=== PATIENT | male | born 1945 | race Caucasian/White ===

== ENCOUNTER 2017-07-14 18:10 | Inpatient (IN) | payer OTHER, MEDICAID ==
[~2017-07-14] VITALS: Ht 185.4 cm; Wt 81.6 kg
[2017-07-14 18:10] VITALS: BP_SYST 145
[~2017-07-14 18:10] MED LIST: BETH50TA PO; OMEP20CA10 PO; PRED10TA PO; QUET200T5 PO; VENL75TA4 PO
--- NOTE | 2017-07-14 18:10 | NUR ---
Arrived via BLS ambulance with compliant of N/V/D abd pain. Pt is not forthcoming with information regarding present illness other than to blame it on an ukn medication which was started at the SNF. Patient to ER bed 6 to gown for evaluation. Side rails up. Report given to Shaun JOVEL.
[2017-07-14] MEDS ORDERED: NACL 0.9% 1,000 ML IV ONE (18:17)
--- NOTE | 2017-07-14 18:20 | NUR ---
ER at bedside examining patient.
[2017-07-14] MEDS ORDERED: ONDANSETRON HCL 4 MG/2 ML VIAL IVP ONE (18:30)
[2017-07-14] MEDS ORDERED: MORPHINE 4 MG/ML INJ. SYRINGE IVP ONE (18:30)
[2017-07-14] MEDS ORDERED: KETOROLAC TROMETHAMINE 30 MG VIAL IVP ONE (18:30)
--- NOTE | 2017-07-14 18:30 | NUR ---
ER Dr. Delgadillo at bedside examining patient.
[2017-07-14] MEDS ORDERED: LABE100T PO (18:33)
[2017-07-14] MEDS ORDERED: SUCR1TAB78 PO (18:33)
[2017-07-14] MEDS ORDERED: DONE5TAB3 PO (18:33)
[2017-07-14] MEDS ORDERED: POTA20TA83 PO (18:33)
[2017-07-14] MEDS ORDERED: PRED10TA PO (18:33)
[2017-07-14] MEDS ORDERED: QUET400T PO (18:33)
[2017-07-14] MEDS ORDERED: SILO8CAP PO (18:33)
[2017-07-14] MEDS ORDERED: DEXL60CA3 PO (18:33)
[2017-07-14] MEDS ORDERED: TAMS-11 PO (18:33)
[2017-07-14] MEDS ORDERED: FENT1PAT10 TD (18:33)
[2017-07-14] MEDS ORDERED: FOLI-43 PO (18:33)
[2017-07-14] MEDS ORDERED: ZOLP10TA2 PO (18:33)
[2017-07-14] MEDS ORDERED: METH2.5T PO (18:33)
--- NOTE | 2017-07-14 18:45 | NUR ---
# 16 FR Tolentino catheter with use of sterile technique. Immediate return of 100 cc clear yellow urine noted. Bedside drainage bag placed below level of bladder. Urine sample collected and sent to lab. Pt tolerated procedure well. Patient arrived with tolentino in place, changed due to standard of practice prior to admission. Patient unable to toilet self.
[2017-07-14 19:08] LABS: BASOPHILS % (AUTO) 0.2 % (0.0-2.0); EOSINOPHILS % (AUTO) 0.3 % (0.0-4.0); HEMATOCRIT 38.4 % (36-54); HEMOGLOBIN 12.8 g/dL (14.0-18.0); LYMPHOCYTES # (AUTO) 1.3 K/uL (1.0-5.5); LYMPHOCYTES % (AUTO) 23.3 % (20.5-51.5); MEAN CORPUSCULAR HEMOGLOBIN 31 pg (27-31); MEAN CORPUSCULAR HGB CONC 33 % (32-36); MEAN CORPUSCULAR VOLUME 94 fL (79.0-98.0); MONOCYTES # (AUTO) 0.2 K/uL (0.0-1.0); MONOCYTES % (AUTO) 4.3 % (1.7-9.3); NEUTROPHILS # (AUTO) 4.2 K/uL (1.8-7.7); NEUTROPHILS % (AUTO) 71.9 % (40.0-70.0); PLATELET COUNT (AUTO) 208 K/uL (130-430); RED CELL DISTRIBUTION WIDTH 15.2 % (9.0-15.0); WHITE BLOOD COUNT (AUTO) 5.7 K/uL (4.8-10.8)
--- NOTE | 2017-07-14 19:08 | NUR ---
Medication reconciliation completed with information provided by - list from facility. Any prior medication reconciliation on file was reviewed and corrected.
[2017-07-14 19:09] LABS: ANION GAP 10 (5-15); CALCIUM 9.5 mg/dL (8.4-11.0); CHLORIDE 97 mmol/L (98-107); CREATININE 1.12 mg/dL (0.55-1.30); GLUCOSE 128 mg/dL (70-99); POTASSIUM 4.3 mmol/L (3.5-5.1); SODIUM SERUM 129 mmol/L (136-145); UREA NITROGEN, BLOOD 11 mg/dL (8-21)
[2017-07-14 19:17] LABS: ASPARTATE AMINOTRANSFERASE 20 U/L (10-37); TOTAL BILIRUBIN 0.7 mg/dL (0.0-1.0)
[2017-07-14 19:18] LABS: ALANINE AMINOTRANSFERASE 17 U/L (12-78); ALBUMIN 3.7 g/dL (3.4-4.8); LIPASE 71 U/L (73-393)
--- NOTE | 2017-07-14 19:26 | NUR ---
Patient will be admitted to care of Dr Lazo. Admitted to MS in unit. Will go to room 135. Belongings list completed. Summary report printed. Report will be given at bedside.
[2017-07-14] MEDS ORDERED: INSULIN REGULAR, HUMAN 100 UNITS/ML, 10 ML VIAL (novoLIN R) SUBCUT PRN (19:30)
[2017-07-14] MEDS ORDERED: MORPHINE 2 MG/ML INJ. SYRINGE IVP PRN (19:30)
--- NOTE | 2017-07-14 19:34 | NUR ---
Transfer to [facility]. IV present no sign or symptom of infiltration.
--- NOTE | 2017-07-14 19:53 | NUR ---
ADMISSION NOTE Received patient from ER via debbie, received report from Shaun JOVEL. Patient admitted with diagnosis of Intractable Abdominal Pain. Patient oriented to hospital routine, call light, toileting and safety-patient verbalized understanding.
[2017-07-14 19:56] VITALS: BP_SYST 147
[2017-07-14 19:59] VITALS: BP_SYST 145
[2017-07-14] MEDS ORDERED: FLU VACC QS 2017-18(36MOS+)/PF 0.5 ML/SYR SYRINGE I.M. PRN (20:00)
[2017-07-14 20:20] LABS: BILIRUBIN,URINE NEGATIVE (NEGATIVE); CLARITY/URINE HAZY (CLEAR); COLOR,URINE YELLOW (YELLOW); GLUCOSE,URINE NEGATIVE (NEGATIVE); KETONES,URINE NEGATIVE (NEGATIVE); LEUKOCYTE ESTERASE ,URINE TRACE (NEGATIVE); NITRITE, URINE NEGATIVE (NEGATIVE); PROTEIN URINE TRACE (NEGATIVE); UROBILINOGEN,URINE 0.2 (0.2-1.0)
[2017-07-14 20:21] LABS: BLOOD, URINE TRACE (NEGATIVE)
[2017-07-14 20:24] LABS: BACTERIA,URINE MANY /HPF (None Seen); MUCUS,URINE 1+ /LPF (None Seen); URINE AMORPHOUS PHOSPHATES 2+ /HPF (None Seen)
--- NOTE | 2017-07-14 20:30 | NUR ---
INITIAL NOTE Received patient and report from Roxana JOVEL. Patient appears slightly confused and states he is in pain: both abdominal and his joints "because of his Rheumatoid arthritis" (his words). Patient has a Middleton inserted in ER, D5NS at 80cc/hr is running smoothly. No S/S of other distress besides the pain noted.
[2017-07-14] MEDS ORDERED: ONDANSETRON HCL 4 MG/2 ML VIAL IVP PRN (21:15)
[2017-07-14] MEDS ORDERED: fentaNYL 100 MCG/HR PATCH TD SCH (21:15)
[2017-07-14] MEDS ORDERED: MAGNESIUM SULFATE 50 ML IV PRN (21:15)
[2017-07-14] MEDS ORDERED: cloNIDine HCL 0.1 MG TABLET PO PRN (21:15)
[2017-07-14] MEDS ORDERED: ACETAMINOPHEN 325 MG TABLET PO PRN (21:15)
[2017-07-14] MEDS ORDERED: POTASSIUM CHLORIDE 10 MEQ TAB.PRT.SR PO PRN (21:15)
[2017-07-14] MEDS ORDERED: LORazepam 2 MG/ML VIAL IVP PRN (21:15)
[2017-07-14] MEDS ORDERED: HYDROCHLOROTHIAZIDE 25 MG TABLET (HCTZ) PO ONE (21:30)
[2017-07-14] MEDS: ZOLPIDEM TARTRATE 5 MG TABLET PO PRN (22:17)
[2017-07-14] MEDS: MORPHINE 2 MG/ML INJ. SYRINGE IVP PRN (22:19)
[2017-07-14] MEDS: cefTRIAXone 1 GM in D5W 50 ML IV SCH (22:30)
--- NOTE | 2017-07-14 22:40 | NUR ---
PAIN MEDICATION REQUESTED Patient stated he is in pain: both abdominal and his joints (rheumatoid arthritis). He requested pain medication as well as Ambien. The nurse administered the medications. No S/S of respiratory distress noted, patient is alert, oriented X4. Fall precautions in place.
[2017-07-14] MEDS ORDERED: cefTRIAXone 1 GM IVPB PREMIX 50 ML IV ONE (22:58)
--- NOTE | 2017-07-14 23:31 | NUR ---
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
[2017-07-15] VITALS (7 sets, daily range): BP systolic 131–148
[2017-07-15] MEDS: D5NS 1,000 ML IV SCH ×2 (00:40→14:55)
--- NOTE | 2017-07-15 00:45 | NUR ---
ROUNDS Patient is in bed sleeping. No S/S of any distress or pain noted. Fall precautions in place.
--- NOTE | 2017-07-15 03:30 | NUR ---
ROUNDS Patient in bed resting. He states that he is trying to fall asleep, but he is unable to do so. No distress noted at this time. IVF running smoothly. Fall precautions in place.
[2017-07-15] MEDS: MORPHINE 2 MG/ML INJ. SYRINGE IVP PRN ×3 (03:45→22:11)
--- NOTE | 2017-07-15 03:45 | NUR ---
PAIN MEDICATION REQUESTED The patient requested another pain medication for his joint pain. He stated that he is in pain 8/10. The nurse administered Morphine 2 mg PRN per MD order. No other distress noted. Patient appear somewhat restless and worried. Fall precautions in place.
--- NOTE | 2017-07-15 04:40 | NUR ---
ROUNDS The patient requested medication for anxiety. The nurse took his blood pressure and she administered Ativan 2 mg PRN per MD order. Fall precautions in place.
--- NOTE | 2017-07-15 06:28 | NUR ---
CLOSING NOTE Patient in bed sleeping. No pain or any distress noted at this time. BS 91, no coverage per MD order. IVF running smoothly. Fall precautions in place. Oxygen saturation 91-94% on room air. Report will be given to the day shift nurse.
[2017-07-15 06:38] LABS: BASOPHILS % (AUTO) 0.4 % (0.0-2.0); EOSINOPHILS # (AUTO) 0.1 K/uL (0.0-0.4); EOSINOPHILS % (AUTO) 2.1 % (0.0-4.0); HEMATOCRIT 32.9 % (36-54); HEMOGLOBIN 11.3 g/dL (14.0-18.0); LYMPHOCYTES # (AUTO) 2.1 K/uL (1.0-5.5); LYMPHOCYTES % (AUTO) 35.4 % (20.5-51.5); MEAN CORPUSCULAR HEMOGLOBIN 32 pg (27-31); MEAN CORPUSCULAR HGB CONC 35 % (32-36); MEAN CORPUSCULAR VOLUME 93 fL (79.0-98.0); MONOCYTES # (AUTO) 0.4 K/uL (0.0-1.0); MONOCYTES % (AUTO) 6.4 % (1.7-9.3); NEUTROPHILS # (AUTO) 3.2 K/uL (1.8-7.7); NEUTROPHILS % (AUTO) 55.7 % (40.0-70.0); PLATELET COUNT (AUTO) 161 K/uL (130-430); RED BLOOD CELL COUNT(AUTO) 3.53 MIL/uL (4.2-6.2); RED CELL DISTRIBUTION WIDTH 15.4 % (9.0-15.0); WHITE BLOOD COUNT (AUTO) 5.9 K/uL (4.8-10.8)
[2017-07-15 06:54] LABS: ANION GAP 9 (5-15); CALCIUM 8.8 mg/dL (8.4-11.0); CHLORIDE 98 mmol/L (98-107); CREATININE 1.07 mg/dL (0.55-1.30); GLUCOSE 93 mg/dL (70-99); POTASSIUM 3.9 mmol/L (3.5-5.1); SODIUM SERUM 129 mmol/L (136-145); UREA NITROGEN, BLOOD 11 mg/dL (8-21)
--- NOTE | 2017-07-15 08:00 | NUR ---
AM Initial Notes Pt aaox3 with no complaints of abdominal pain or discomfort at this time but states he does not feel too good. No distress noted. IF to left forearm #22g patent with IV fluid infusing. Middleton catheter in place. Fall and safety precautions enforced with bed alarm armed, ID band on, 3 rails up and close to nurse's station. Repositioned and kept comfortable. Isolation precautions enforced. Encouraged to call for assistance. Call light within reach. Will monitor.
--- NOTE | 2017-07-15 08:36 | NUR ---
Nutrition Update Alfonso Scale 14 noted. Pt admitted for Intractable Abdominal Pain Diet: NPO BMI: 23.7 kg/m2 RD to follow per nutrition care standards
[2017-07-15] MEDS ORDERED: HYDROCHLOROTHIAZIDE 25 MG TABLET (HCTZ) PO SCH (09:00)
[2017-07-15] MEDS ORDERED: GOLYTELY / COLYTE SOLUTION 4 LITERS PO ONE (09:15)
[2017-07-15] MEDS ORDERED: COMMUNICATION ORDER XX ONE (09:15)
[2017-07-15] MEDS ORDERED: MINERAL OIL 133 ML ENEMA RC ONE (09:15)
[2017-07-15] MEDS ORDERED: NA PHOS,M-B/NA PHOS,DI-BA 118 ML (FLEET ENEMA) RC ONE (10:00)
--- NOTE | 2017-07-15 10:00 | NUR ---
Refused treatment Pt refused to have impaction done at this time. States he does not feel too good and feels weak. Kept pt comfortable. Will try later when he feels up to having it done.
[2017-07-15] MEDS: DOCUSATE SODIUM 100 MG CAPSULE PO PRN (10:22)
[2017-07-15] MEDS: TAMSULOSIN HCL 0.4 MG CAP PO SCH (10:22)
[2017-07-15] MEDS: LABETALOL HCL 100 MG TABLET PO SCH (10:24)
[2017-07-15] MEDS: HEPARIN SODIUM,PORCINE 5000 UNITS/ML VIAL SUBCUT SCH ×2 (10:26→21:55)
--- NOTE | 2017-07-15 10:30 | NUR ---
Physical Therapy Pt ambulating with therapist. Very weak and unsteady gait noted.
--- NOTE | 2017-07-15 12:00 | NUR ---
Rounds Pt asleep but easily awakened. No distress noted. Blood sugar checked 116. No insulin coverage needed. Will monitor.
[2017-07-15] MEDS ORDERED: FLU VACC QS 2017-18(36MOS+)/PF 0.5 ML/SYR SYRINGE I.M. PRN (13:45)
--- NOTE | 2017-07-15 15:00 | NUR ---
Rounds Pt asleep. No significant changes noted. Will monitor.
--- NOTE | 2017-07-15 16:00 | NUR ---
Bowel movement Pt had one bowel movement. Stool appears liquid with small particles noted. Encouraged to drink Golytely.
--- NOTE | 2017-07-15 17:15 | NUR ---
Pain Pt complaints of head and back pain and is requesting for Morphine. Informed RN for medication administration.
--- NOTE | 2017-07-15 18:30 | NUR ---
Closing notes Pt asleep. No significant changes noted. Will endorse care to incoming nurse.
--- NOTE | 2017-07-15 20:26 | NUR ---
Opening notes. Received patient in bed,report from morning nurse; alert/oriented, breathing spontaneously, in RA, Lt eye blindness, IVF infusing D5ns at 80ml/hr via Lt arm, patent,f/c in place draining clear yellow urine;no c/o pain at this time, call light in reach, bed in low position,bed alarm on.
[2017-07-15] MEDS: ZOLPIDEM TARTRATE 5 MG TABLET PO PRN (21:50)
[2017-07-15] MEDS: QUEtiapine FUMARATE 100 MG TABLET PO SCH (21:51)
--- NOTE | 2017-07-15 22:30 | NUR ---
Round. Awake alert,oriented,no c/o pain at this time, call light in reach,bed in low position, bed alarm on.
[2017-07-16] VITALS: BP_SYST 102
[2017-07-16] MEDS: cefTRIAXone 1 GM in D5W 50 ML IV SCH ×2 (00:20→22:00)
[2017-07-16] MEDS ORDERED: cefTRIAXone 1 GM IVPB PREMIX 50 ML IV ONE (00:20)
--- NOTE | 2017-07-16 00:30 | NUR ---
Round. In bed sleeping at this time, no distress noted,call light in reach,bed in low position, bed alarm on.
--- NOTE | 2017-07-16 02:29 | NUR ---
CONSULT CONSULT CALLED FOR DR. KOLB I SPOKE WITH AKI MARIA
[2017-07-16 04:00] VITALS: BP_SYST 120
[2017-07-16 06:42] LABS: BASOPHILS % (AUTO) 0.5 % (0.0-2.0); EOSINOPHILS # (AUTO) 0.2 K/uL (0.0-0.4); HEMATOCRIT 32.3 % (36-54); LYMPHOCYTES # (AUTO) 2.5 K/uL (1.0-5.5); LYMPHOCYTES % (AUTO) 48.8 % (20.5-51.5); MEAN CORPUSCULAR HEMOGLOBIN 32 pg (27-31); MEAN CORPUSCULAR HGB CONC 34 % (32-36); MEAN CORPUSCULAR VOLUME 93 fL (79.0-98.0); MONOCYTES # (AUTO) 0.4 K/uL (0.0-1.0); MONOCYTES % (AUTO) 8.1 % (1.7-9.3); NEUTROPHILS % (AUTO) 38.6 % (40.0-70.0); PLATELET COUNT (AUTO) 142 K/uL (130-430); RED BLOOD CELL COUNT(AUTO) 3.47 MIL/uL (4.2-6.2); RED CELL DISTRIBUTION WIDTH 15.3 % (9.0-15.0); WHITE BLOOD COUNT (AUTO) 5.1 K/uL (4.8-10.8)
[2017-07-16 07:08] LABS: ANION GAP 9 (5-15); CALCIUM 8.5 mg/dL (8.4-11.0); CHLORIDE 95 mmol/L (98-107); CREATININE 1.04 mg/dL (0.55-1.30); GLUCOSE 90 mg/dL (70-99); POTASSIUM 3.4 mmol/L (3.5-5.1); SODIUM SERUM 130 mmol/L (136-145); UREA NITROGEN, BLOOD 7 mg/dL (8-21)
[2017-07-16] MEDS: D5NS 1,000 ML IV SCH ×3 (07:08→21:28)
--- NOTE | 2017-07-16 07:25 | NUR ---
Initial notes: patient on bed sleeping. Stable. I.V. access patent. Safety measures in placed. Call light within reach. Report received at bedside.
--- NOTE | 2017-07-16 09:04 | NUR ---
KUB: KUB done at bedside.
[2017-07-16] MEDS: HEPARIN SODIUM,PORCINE 5000 UNITS/ML VIAL SUBCUT SCH ×2 (09:15→21:55)
[2017-07-16] MEDS: TAMSULOSIN HCL 0.4 MG CAP PO SCH (09:16)
[2017-07-16] MEDS: LABETALOL HCL 100 MG TABLET PO SCH (09:19)
[2017-07-16] MEDS: POLYETHYLENE GLYCOL 3350, 17 GM/ POWD.PACK PO SCH (09:19)
[2017-07-16 09:20] VITALS: BP_SYST 125
--- NOTE | 2017-07-16 09:29 | NUR ---
rounds: patient having breakfast. no distress noted.
[2017-07-16] MEDS: MORPHINE 2 MG/ML INJ. SYRINGE IVP PRN ×3 (11:13→21:59)
--- NOTE | 2017-07-16 11:16 | NUR ---
pain meds: pt complained of pain back pain, neck pain and leg pain. 06/11. Morphine given thru IVP.
[2017-07-16] MEDS ORDERED: NA PHOS,M-B/NA PHOS,DI-BA 118 ML (FLEET ENEMA) RC ONE (11:30)
--- NOTE | 2017-07-16 12:36 | NUR ---
P.T.: seen by Ronny
[2017-07-16 12:41] VITALS: BP_SYST 114
[2017-07-16] MEDS: VANCOMYCIN HCL 1,000 MG in NS 250 ML IV SCH (13:09)
--- NOTE | 2017-07-16 13:26 | NUR ---
rounds: patient on bed resting. no distress noted.
--- NOTE | 2017-07-16 15:19 | NUR ---
DISCHARGE PLANNING Faxed SNF referral to [facility] [phone]. Will follow up on bed availability. Addendum: 07/16/17 at 1644 by Angelica Still DP Spoke with Shyanne in admitting at [facility] who confirmed fax was received and currently checking insurance verification. Will follow up.
--- NOTE | 2017-07-16 15:37 | NUR ---
PHYSICAL THERAPY CO-SIGN The Physical Therapy Progress Notes documented by Want Ad Receiver have been reviewed. I CONCUR W/CELERY CUTTER NOTE; CONT PER TX PLAN Reviewed/Co-Signed by: Machelle Méndez PT Documentation Done by: TAWANA GRANT PTA Addendum: 07/16/17 at 1537 by Machelle Méndez PT Amended: Links added.
--- NOTE | 2017-07-16 16:03 | NUR ---
Pain meds: patient complained of whole body ache, neck and back. 06/11. Due pain meds given thru ivp.
--- NOTE | 2017-07-16 16:20 | NUR ---
rounds: patient sleeping. no distress noted.
[2017-07-16 16:29] VITALS: BP_SYST 101
--- NOTE | 2017-07-16 18:28 | NUR ---
CLOSING NOTES: Patient on bed resting. Stable. Needs attended. I.V. access in placed. Middleton cath draining by gravity. Safety measures in placed. Call light within reach. Report will be given at bedside.
--- NOTE | 2017-07-16 20:30 | NUR ---
Opening notes. Received patient in bed report from morning nurse,alert/oriented, breathing spontaneously,in RA,no c/o pain at this time;call light in reach,bed in low position, bed alarm on.
--- NOTE | 2017-07-16 21:30 | NUR ---
Meds. routine meds given as ordered, tolerated well,call light in reach, bed in low position, bed alarm on.
[2017-07-16] MEDS: QUEtiapine FUMARATE 100 MG TABLET PO SCH (21:53)
[2017-07-16] MEDS: ZOLPIDEM TARTRATE 5 MG TABLET PO PRN (21:54)
[2017-07-17] VITALS (7 sets, daily range): BP systolic 94–125
--- NOTE | 2017-07-17 | NUR ---
Round. Sleeping in bed at this time, with no distress.call light in reach, bed in low position, bed alarm on.
[2017-07-17] MEDS ORDERED: cefTRIAXone 1 GM IVPB PREMIX 50 ML IV ONE (00:36)
[2017-07-17] MEDS: VANCOMYCIN HCL 1,000 MG in NS 250 ML IV SCH ×2 (02:32→14:07)
--- NOTE | 2017-07-17 04:00 | NUR ---
Round. Sleeping in bed at this time, with no distress.
[2017-07-17 06:55] LABS: BASOPHILS % (AUTO) 0.7 % (0.0-2.0); EOSINOPHILS # (AUTO) 0.2 K/uL (0.0-0.4); EOSINOPHILS % (AUTO) 4.7 % (0.0-4.0); HEMATOCRIT 34.9 % (36-54); HEMOGLOBIN 11.9 g/dL (14.0-18.0); LYMPHOCYTES # (AUTO) 2.2 K/uL (1.0-5.5); MEAN CORPUSCULAR HEMOGLOBIN 32 pg (27-31); MEAN CORPUSCULAR HGB CONC 34 % (32-36); MEAN CORPUSCULAR VOLUME 94 fL (79.0-98.0); MONOCYTES # (AUTO) 0.4 K/uL (0.0-1.0); MONOCYTES % (AUTO) 7.4 % (1.7-9.3); NEUTROPHILS % (AUTO) 41.2 % (40.0-70.0); PLATELET COUNT (AUTO) 144 K/uL (130-430); RED BLOOD CELL COUNT(AUTO) 3.71 MIL/uL (4.2-6.2); RED CELL DISTRIBUTION WIDTH 15.6 % (9.0-15.0); WHITE BLOOD COUNT (AUTO) 4.8 K/uL (4.8-10.8)
[2017-07-17 07:16] LABS: ANION GAP 8 (5-15); CALCIUM 8.5 mg/dL (8.4-11.0); CHLORIDE 105 mmol/L (98-107); CREATININE 0.93 mg/dL (0.55-1.30); GLUCOSE 88 mg/dL (70-99); SODIUM SERUM 139 mmol/L (136-145); UREA NITROGEN, BLOOD 5 mg/dL (8-21)
--- NOTE | 2017-07-17 07:57 | NUR ---
Closing notes. Condition stable slept all night,tolerated meds well,blood sugar monitored,coverage given as ordered;now, resting in bed with no distress; call light in reach, bed in low position, bed alarm on.
[2017-07-17] MEDS: POLYETHYLENE GLYCOL 3350, 17 GM/ POWD.PACK PO SCH (09:48)
[2017-07-17] MEDS: TAMSULOSIN HCL 0.4 MG CAP PO SCH (09:48)
[2017-07-17] MEDS: LABETALOL HCL 100 MG TABLET PO SCH (09:49)
[2017-07-17] MEDS: HEPARIN SODIUM,PORCINE 5000 UNITS/ML VIAL SUBCUT SCH ×2 (09:50→21:12)
[2017-07-17] MEDS: D5NS 1,000 ML IV SCH ×2 (10:49→22:28)
[2017-07-17] MEDS: MORPHINE 2 MG/ML INJ. SYRINGE IVP PRN ×3 (10:49→19:06)
--- NOTE | 2017-07-17 11:01 | NUR ---
DISCHARGE PLANNING spoke with Elizabeth at [facility] patient denied, facility currently has no custodial beds available at this time. CM Made aware and will update patient/family. Meanwhile; Faxed SNF referral to [facility] [phone] for possible discharge back to SNF. Will follow up on bed availability.
--- NOTE | 2017-07-17 19:25 | NUR ---
change of shift.pt.presents stable status.pt.presents bedrest.pt.presents tolentino catheter.patent. pt.presents room air.call light w/in the pt's reach.
--- NOTE | 2017-07-17 20:00 | NUR ---
pt.assessed.v/s assessed:values w/in normal limits.pt.states he assumes the iv access is not functioning. i have assessed the iv access;the access is infiltrated.i have d/c the access.pt.repositioned.pt.requested juice@this hour i have provided the juice.call light placed w./in the pt's reach.
--- NOTE | 2017-07-17 20:30 | NUR ---
i have assessed the blood glucose:109mg/dl.i have reestablished the iv access.no requests @this hour. call light w/in the pt's reach.
--- NOTE | 2017-07-17 21:00 | NUR ---
2100p medications administered.i have applied the fentynal patch:location rt.upper chest. to f/u re:efficacy of the patch.no further requests.call light w/in the pt's reach.
[2017-07-17] MEDS: cefTRIAXone 1 GM in D5W 50 ML IV SCH (21:05)
[2017-07-17] MEDS: QUEtiapine FUMARATE 100 MG TABLET PO SCH (21:06)
[2017-07-17] MEDS: ZOLPIDEM TARTRATE 5 MG TABLET PO PRN (21:07)
--- NOTE | 2017-07-17 22:00 | NUR ---
pt.assessed.pt.repositioned.iv fluids infusing.pt. states the patch is effective pain is lessened. blanket re applies to the pt.no requests.call light placed w/in the pt's reach.
--- NOTE | 2017-07-18 | NUR ---
pt.assessed.v/s assessed:values w/in normal limits.no c/o pain/nausea.pt.requested juice and jello. i have provided the snacks.iv fluids infusing,tolentino catheter patent.pt.recovered w/pt's blanket. call light w/in the pt's reach.
[2017-07-18 01:00] VITALS: BP_SYST 117
--- NOTE | 2017-07-18 02:00 | NUR ---
pt.assessed.pt.repositoned.pt.presents quiescent affect;calm,asleep.no distress.discomfort manifested .tolentino catheter patent iv fluids infusing.call light w/in the pt's reach.
[2017-07-18] MEDS: VANCOMYCIN HCL 1,000 MG in NS 250 ML IV SCH ×2 (02:14→12:19)
--- NOTE | 2017-07-18 04:00 | NUR ---
pt.assessed.v/s assessed:values w/in normal limits.pt.repositioned.no c/o pain,nausea.iv fluids infusing. tolentino catheter patent.call light w/in the pt's reach.
[2017-07-18 04:45] VITALS: BP_SYST 103
--- NOTE | 2017-07-18 06:17 | NUR ---
pt.assessed.pt.repositioned.no c/o pain,nausea.pt.states he is comfortable. i inquired if the pt.presents requests,pt.stated juices and jello.i have provided the snacks. blood glucose assessed:x3:78,74,82mg/dl.iv fluids infusing.tolentino catheter patent. call light w/in the pt's reach.
[2017-07-18 07:15] LABS: BASOPHILS % (AUTO) 0.4 % (0.0-2.0); EOSINOPHILS # (AUTO) 0.2 K/uL (0.0-0.4); EOSINOPHILS % (AUTO) 4.7 % (0.0-4.0); HEMATOCRIT 34.4 % (36-54); HEMOGLOBIN 11.5 g/dL (14.0-18.0); LYMPHOCYTES # (AUTO) 2.1 K/uL (1.0-5.5); LYMPHOCYTES % (AUTO) 44.6 % (20.5-51.5); MEAN CORPUSCULAR HEMOGLOBIN 32 pg (27-31); MEAN CORPUSCULAR HGB CONC 34 % (32-36); MEAN CORPUSCULAR VOLUME 95 fL (79.0-98.0); MONOCYTES # (AUTO) 0.3 K/uL (0.0-1.0); MONOCYTES % (AUTO) 6.8 % (1.7-9.3); NEUTROPHILS # (AUTO) 1.9 K/uL (1.8-7.7); NEUTROPHILS % (AUTO) 43.5 % (40.0-70.0); PLATELET COUNT (AUTO) 141 K/uL (130-430); RED BLOOD CELL COUNT(AUTO) 3.63 MIL/uL (4.2-6.2); WHITE BLOOD COUNT (AUTO) 4.5 K/uL (4.8-10.8)
[2017-07-18 07:24] LABS: ANION GAP 7 (5-15); CALCIUM 8.2 mg/dL (8.4-11.0); CHLORIDE 104 mmol/L (98-107); CREATININE 0.95 mg/dL (0.55-1.30); GLUCOSE 127 mg/dL (70-99); POTASSIUM 3.6 mmol/L (3.5-5.1); SODIUM SERUM 134 mmol/L (136-145); UREA NITROGEN, BLOOD 6 mg/dL (8-21)
[2017-07-18 08:00] VITALS: BP_SYST 103
[2017-07-18] MEDS: LABETALOL HCL 100 MG TABLET PO SCH (09:00)
[2017-07-18] MEDS: TAMSULOSIN HCL 0.4 MG CAP PO SCH (09:18)
[2017-07-18] MEDS: MORPHINE 2 MG/ML INJ. SYRINGE IVP PRN ×3 (09:22→18:30)
[2017-07-18] MEDS: HEPARIN SODIUM,PORCINE 5000 UNITS/ML VIAL SUBCUT SCH ×2 (09:23→21:49)
[2017-07-18] MEDS: POLYETHYLENE GLYCOL 3350, 17 GM/ POWD.PACK PO SCH (09:24)
--- NOTE | 2017-07-18 10:43 | NUR ---
PATIENT IS UP OOB WITH PT.
[2017-07-18] MEDS: D5NS 1,000 ML IV SCH (11:12)
--- NOTE | 2017-07-18 11:19 | NUR ---
dr harris in to see patient, called daughter to discuss plan of care
[2017-07-18 12:05] VITALS: BP_SYST 119
--- NOTE | 2017-07-18 14:00 | NUR ---
PHYSICAL THERAPY CO-SIGN The Physical Therapy Progress Notes documented by Power Tong Operator have been reviewed. 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 Patient making slow but good and steady progress with PT and continue to need a lot of encouragements to increase his participation with the plan of care. Plan: continue PT as ordered if he remains in this hosp Addendum: 07/18/17 at 1403 by April Reed PT Amended: Links added.
[2017-07-18 15:56] VITALS: BP_SYST 112
[2017-07-18 20:00] VITALS: BP_SYST 145
--- NOTE | 2017-07-18 20:00 | NUR ---
ROUNDS RECEIVED PT FROM DAY SHIFT RN. PT IS AWAKE, ALERT ORIENTED WITH NO S/S OF DISTRESS OR CURRENT COMPLAINTS. IV INTACT AND PATENT WITH FLUIDS RUNNING. SAFETY PRECAUTIONS IN PLACE. BED ALARM ON. CALL WILLAMS BY ARM AND INSTRUCTED PT TO USE IF NEEDS ASSISTANCE. WILL CONTINUE TO MONITOR.
[2017-07-18] MEDS: QUEtiapine FUMARATE 100 MG TABLET PO SCH (21:27)
[2017-07-18] MEDS: cefTRIAXone 1 GM in D5W 50 ML IV SCH (21:50)
[2017-07-18] MEDS: ZOLPIDEM TARTRATE 5 MG TABLET PO PRN (22:03)
[2017-07-19] VITALS (7 sets, daily range): BP systolic 100–140
--- NOTE | 2017-07-19 | NUR ---
ROUNDS PT APPEARS TO BE RESTING WITH EYES CLOSED. PT HAS NO S/S OF DISTRESS OR COMPLAINTS. AMBIEN GIVEN ORDERED PRN. VITAL SIGNS STABLE. IV ANTIBIOTIC GIVEN. SAFETY PRECAUTIONS IN PLACE. BED ALARM ON. CALL WILLAMS BY ARM. WILL CONTINUE TO MONITOR.
[2017-07-19] MEDS: VANCOMYCIN HCL 1,000 MG in NS 250 ML IV SCH ×2 (00:36→13:30)
[2017-07-19] MEDS: D5NS 1,000 ML IV SCH ×2 (00:36→12:27)
--- NOTE | 2017-07-19 02:41 | NUR ---
ROUNDS PT APPEARS TO BE RESTING IN BED WITH EYES CLOSED AND VISIBLE CHEST RISE AND FALL. NO S/S OF DISTRESS NOTED. SAFETY PRECAUTIONS IN PLACE. BED ALARM ON. CALL WILLAMS BY ARM. WILL CONTINUE TO MONITOR.
--- NOTE | 2017-07-19 03:04 | NUR ---
RN ROUNDS Patient is resting quietly in bed with no s/s of acute distress. Safety precautions are in place. Bed alarm on. Room near nurses station. Call light to right hand. Will continue to monitor.
--- NOTE | 2017-07-19 06:00 | NUR ---
ROUNDS PT APPEARS TO BE RESTING IN BED WITH EYES CLOSED AND VISIBLE CHEST RISE AND FALL. NO S/S OF ACUTE DISTRESS. CHECKED AM BLOOD SUGAR. NO CURRENT COMPLAINTS. SAFETY PRECAUTIONS IN PLACE. WILL CONTINUE TO MONITOR CLOSELY.
--- NOTE | 2017-07-19 06:30 | NUR ---
CLOSING PT RESTING IN BED AWAKE, ALERT. NO S/S OF DISTRESS OR CURRENT COMPLAINTS. OFFERED COLACE TO HELP PT WITH BM AND ADMINISTERED MED. IV INTACT AND PATENT WITH FLUIDS RUNNING. PUCKETT DRAINING TO GRAVITY. SAFETY PRECAUTIONS IN PLACE. CALL WILLAMS BY PT'S ARM AND INSTRUCTED TO CALL FOR ASSISTANCE. ALL NEEDS MET DURING SHIFT. WILL GIVE REPORT TO DAY SHIFT RN.
[2017-07-19] MEDS: DOCUSATE SODIUM 100 MG CAPSULE PO PRN (07:00)
[2017-07-19 07:03] LABS: ANION GAP 8 (5-15); CALCIUM 8.3 mg/dL (8.4-11.0); CHLORIDE 103 mmol/L (98-107); CREATININE 0.92 mg/dL (0.55-1.30); GLUCOSE 81 mg/dL (70-99); POTASSIUM 3.8 mmol/L (3.5-5.1); SODIUM SERUM 134 mmol/L (136-145); UREA NITROGEN, BLOOD 7 mg/dL (8-21)
[2017-07-19 07:08] LABS: BASOPHILS % (AUTO) 0.6 % (0.0-2.0); EOSINOPHILS # (AUTO) 0.3 K/uL (0.0-0.4); EOSINOPHILS % (AUTO) 5.6 % (0.0-4.0); HEMATOCRIT 32.1 % (36-54); HEMOGLOBIN 10.8 g/dL (14.0-18.0); LYMPHOCYTES # (AUTO) 1.8 K/uL (1.0-5.5); LYMPHOCYTES % (AUTO) 39.2 % (20.5-51.5); MEAN CORPUSCULAR HEMOGLOBIN 32 pg (27-31); MEAN CORPUSCULAR HGB CONC 34 % (32-36); MEAN CORPUSCULAR VOLUME 94 fL (79.0-98.0); MONOCYTES # (AUTO) 0.4 K/uL (0.0-1.0); MONOCYTES % (AUTO) 7.8 % (1.7-9.3); NEUTROPHILS % (AUTO) 46.8 % (40.0-70.0); PLATELET COUNT (AUTO) 136 K/uL (130-430); RED BLOOD CELL COUNT(AUTO) 3.41 MIL/uL (4.2-6.2); RED CELL DISTRIBUTION WIDTH 15.9 % (9.0-15.0); WHITE BLOOD COUNT (AUTO) 4.5 K/uL (4.8-10.8)
--- NOTE | 2017-07-19 07:45 | NUR ---
Opening Note Patient sitting in bed eating breakfast. No complaints of pain or difficulty breathing. Middleton catheter emptied with 1200ml of yellow, clear urine. IV site patent and infusing D5NS 80ml/hr. Patient is calm, bed alarm set, call light in reach and instructed to call nurse for any needs.
[2017-07-19] MEDS: TAMSULOSIN HCL 0.4 MG CAP PO SCH (09:04)
[2017-07-19] MEDS: LABETALOL HCL 100 MG TABLET PO SCH (09:06)
[2017-07-19] MEDS: POLYETHYLENE GLYCOL 3350, 17 GM/ POWD.PACK PO SCH (09:07)
[2017-07-19] MEDS: HEPARIN SODIUM,PORCINE 5000 UNITS/ML VIAL SUBCUT SCH ×2 (09:11→21:16)
[2017-07-19] MEDS: MORPHINE 2 MG/ML INJ. SYRINGE IVP PRN ×2 (09:39→15:46)
--- NOTE | 2017-07-19 13:27 | NUR ---
Dr Brown pagebrian regarding constipation. Orders received.
[2017-07-19] MEDS ORDERED: NA PHOS,M-B/NA PHOS,DI-BA 118 ML (FLEET ENEMA) RC ONE (13:30)
--- NOTE | 2017-07-19 19:39 | NUR ---
OPENING NOTE Patient and bedside report received from day shift nurse. Patient is awake, alert and using telephone at this time. No s/s of acute distress. Safety and fall precautions in place. Bed alarm on. Room near nurses station. Will continue to monitor.
[2017-07-19] MEDS: cefTRIAXone 1 GM in D5W 50 ML IV SCH (21:10)
[2017-07-19] MEDS: QUEtiapine FUMARATE 100 MG TABLET PO SCH (21:11)
[2017-07-19] MEDS: ZOLPIDEM TARTRATE 5 MG TABLET PO PRN (21:11)
[2017-07-19] MEDS: LACTULOSE 20 GM/30 ML UDC PO SCH (21:21)
[2017-07-20] MEDS: VANCOMYCIN HCL 1,000 MG in NS 250 ML IV SCH ×2 (00:08→16:54)
[2017-07-20] MEDS: D5NS 1,000 ML IV SCH ×2 (00:08→12:58)
--- NOTE | 2017-07-20 00:49 | NUR ---
RESTING Patient is resting quietly in bed with eyes closed. Respirations are even and unlabored with visible chest rise and fall. No s/s of acute distress. Safety and fall precautions in place. Bed alarm on. Call light on lap. Will continue to monitor.
[2017-07-20 01:01] VITALS: BP_SYST 122
--- NOTE | 2017-07-20 02:40 | NUR ---
RN ROUNDS/REFUSING FLEET ENEMA AT THIS TIME Patient is resting with no s/s of acute distress. Denies any pain or discomfort. Continues to refuse fleet enema at this time but will continue to encourage patient due to constipation. Safety and fall precautions in place. Bed alarm on. Call light to right hand. Room near nurses station. Will continue to monitor.
--- NOTE | 2017-07-20 04:00 | NUR ---
RN ROUNDS Late entry due to patient care. Patient is resting with no s/s of acute distress. Safety and fall precautions in place. Bed alarm on. call light to right hand. Will continue to monitor.
[2017-07-20 04:58] VITALS: BP_SYST 99
[2017-07-20 07:54] LABS: BASOPHILS % (AUTO) 0.6 % (0.0-2.0); EOSINOPHILS # (AUTO) 0.2 K/uL (0.0-0.4); EOSINOPHILS % (AUTO) 5.6 % (0.0-4.0); HEMATOCRIT 32.7 % (36-54); LYMPHOCYTES # (AUTO) 1.4 K/uL (1.0-5.5); LYMPHOCYTES % (AUTO) 37.8 % (20.5-51.5); MEAN CORPUSCULAR HEMOGLOBIN 32 pg (27-31); MEAN CORPUSCULAR HGB CONC 34 % (32-36); MEAN CORPUSCULAR VOLUME 94 fL (79.0-98.0); MONOCYTES # (AUTO) 0.3 K/uL (0.0-1.0); MONOCYTES % (AUTO) 8.2 % (1.7-9.3); NEUTROPHILS # (AUTO) 1.9 K/uL (1.8-7.7); NEUTROPHILS % (AUTO) 47.8 % (40.0-70.0); PLATELET COUNT (AUTO) 129 K/uL (130-430); RED BLOOD CELL COUNT(AUTO) 3.48 MIL/uL (4.2-6.2); RED CELL DISTRIBUTION WIDTH 16.1 % (9.0-15.0)
[2017-07-20 07:59] LABS: ALANINE AMINOTRANSFERASE 8 U/L (12-78); ALBUMIN 2.7 g/dL (3.4-4.8); ANION GAP 7 (5-15); ASPARTATE AMINOTRANSFERASE 15 U/L (10-37); CALCIUM 8.1 mg/dL (8.4-11.0); CHLORIDE 105 mmol/L (98-107); CREATININE 0.86 mg/dL (0.55-1.30); GLUCOSE 84 mg/dL (70-99); SODIUM SERUM 136 mmol/L (136-145); TOTAL BILIRUBIN 0.7 mg/dL (0.0-1.0); UREA NITROGEN, BLOOD 8 mg/dL (8-21)
--- NOTE | 2017-07-20 07:59 | NUR ---
CLOSING Patient is stable. Patient and bedside report endorsed to day shift nurse. Fleet enema was refused by patient and endorsed to day shift nurses to follow up.
[2017-07-20 08:25] VITALS: BP_SYST 127
--- NOTE | 2017-07-20 08:28 | NUR ---
Opening shift note Pt resting ALOC x 4, no s/s of SOB or discomfort. Pt reports no pain at this time. Pt refuses fleet enema but will ask again at [facility]. Pt reports having received "great care since he's been here." Vital signs stable, IV patent and infusing. Safety precautions in place with the bed left in the lowest position, bed alarm on and call light within reach. Pt agrees to call for any assistance.
[2017-07-20 08:32] LABS: WHITE BLOOD COUNT (AUTO) 3.8 K/uL (4.8-10.8)
[2017-07-20] MEDS: LACTULOSE 20 GM/30 ML UDC PO SCH (09:31)
[2017-07-20] MEDS: TAMSULOSIN HCL 0.4 MG CAP PO SCH (09:32)
[2017-07-20] MEDS: LABETALOL HCL 100 MG TABLET PO SCH (09:32)
[2017-07-20] MEDS: POLYETHYLENE GLYCOL 3350, 17 GM/ POWD.PACK PO SCH (09:33)
[2017-07-20] MEDS: HEPARIN SODIUM,PORCINE 5000 UNITS/ML VIAL SUBCUT SCH (09:35)
[2017-07-20] MEDS: MORPHINE 2 MG/ML INJ. SYRINGE IVP PRN ×2 (10:20→16:11)
--- NOTE | 2017-07-20 10:28 | NUR ---
Rounding note pt resting in bed w/ no s/s of SOB, easily aroused to voice, no c/o pain or discomfort. Pt educated about antibiotic administration and all questions answered. Safety precautions in place with bed left in lowest position with bed alarm on and call light within reach.
--- NOTE | 2017-07-20 10:45 | NUR ---
DISCHARGE PLANNING Called [facility] spoke with Josiah in admitting who stated facility will accept patient back if patient/family agreeable with patient return back to facility. Today is last day of bed hold. CM made aware and will follow up with patient/family. Meanwhile; [phone] [phone] [facility] [phone] [place] [phone]. Will follow up. Addendum: 07/20/17 at 1154 by Angelica Still DP Spoke with Josiah in admitting patient assigned to room 6B at [facility]. Josiah confirmed [facility] has no fci beds available at this time. Meanwhile; Faxed SNF referral to [phone] and [facility] [phone]. Will follow up. Addendum: 07/20/17 at 1202 by Angelica YANG [place] SN[facility] denied. [facility] assigned to room 38B. Addendum: 07/20/17 at 1438 by Angelica Still DP [facility] spoke with Allen in admitting facility denied. Evie Nunez Spoke with Mahnaz in admitting facility currently has No LT beds at this time, patient denied. [facility] [phone] spoke with Misty in admitting patient denied, no LT beds. [facility] spoke with Agnes in admitting patient denied facility has no LT beds available. CM made aware. Addendum: 07/20/17 at 1451 by Angelica Still DP Called [facility] ambulance [phone] arranged BLS transport apple picking supervisor 6pm. Placed transportation packet in nurses station.
--- NOTE | 2017-07-20 10:55 | NUR ---
Fleet enema Administration Fleet enema administered with retention and fecal return, pt tolerated well.
--- NOTE | 2017-07-20 11:00 | NUR ---
Dr. Brown rounds updates given, discussed plan of care along with Delivery Motorcycle Driver, will follow up with any new orders.
--- NOTE | 2017-07-20 12:11 | NUR ---
DC PLANNING Spoke w Dr Brown in [facility] station, states ordering dc back to SNF. If cannot find different SNF then dc back to [facility]. Spoke w pt @ bedside, states that does not want to go back to [facility]. Informed that [facility] did not accept. States to try [facility] or [facility] & to call girlfriend Eunice that she has another SNF name. Informed that if cannot find another snf that [facility] has bed avail for him today & he can cont looking for another group home SNF while there. Explained Medicare IM letter & pt signed. States will talk to Eunice & may appeal dc. Updated Dr Brown & pt's nurse Juan. Called & Spoke w pt's girlfriend, Eunice Stinson ph [phone], states to try [facility] ph [phone]. Agreeable w plan to dc back to [facility] if unable to find a different accepting SNF today. Addendum: 07/20/17 at 1455 by Clair Bernstein RN Spoke w pt @ bedside, informed of all the SNF's that were sent referrals & that all denied except [facility] & [facility]. Gave pt information for [facility]. States agreeable w dc to [facility]. Pt's nurse Juan @ bedside, aware states 6pm would be good time for ambulance crop picker. Informed dale Dominguez resource management planner.
[2017-07-20 12:24] VITALS: BP_SYST 132
--- NOTE | 2017-07-20 13:05 | NUR ---
Rounding Note Pt resting with no s/s of SOB, easily aroused by voice, safety and fall precaution in place with bed remaining in lowest position, bed alarm on and call light within reach. Pt agrees to use call light for an needed assistance.
--- NOTE | 2017-07-20 15:20 | NUR ---
Rounding note Pt awaiting new IV start. Pt is resting with no s/s of discomfort and no complaints at this time. Bed left in lowest position, with bed alarm on and call light within reach.
--- NOTE | 2017-07-20 15:34 | NUR ---
PHYSICAL THERAPY CO-SIGN The Physical Therapy Progress Notes documented by Director Of Safety And Security have been reviewed. I CONCUR W/METAL MINER NOTE; CONT PER TX PLAN Reviewed/Co-Signed by: Machelle Méndez PT Documentation Done by: TAWANA GRANT METAL MINER Addendum: 07/20/17 at 1534 by Machelle Méndez PT Amended: Links added.
--- NOTE | 2017-07-20 15:46 | NUR ---
IV RE-INSERTION: Complaining of pain to IV site. Restarted on LEFT FOREARM 22G. Successful after 3 attempts. Resumed current IVF of D5NS AT 80ML/HOUR. Will observe for any signs of infiltration. IV restarted by Saira JOVEL.
[2017-07-20 16:18] VITALS: BP_SYST 130
--- NOTE | 2017-07-20 16:26 | NUR ---
Pharmacy Instructions Re Vancomyacin Notified pharmacy that vanco not given at 1300 because of no IV access, pharmacy advised give it now and remain on shedule following because more than 1/2 interval remains before next dose administration at 0100
--- NOTE | 2017-07-20 16:30 | NUR ---
Nutrition F/U Admitting Diagnosis Intractable abdominal pain Reviewed Pertinent Medical/Surgical Hx Medical Record Primary RN Patient Medical History Comment: Intractable abdominal pain, UTI, Hyponatremia, Left Eye blindness, unsteady gait, rheumatoid arthritis per MD notes. Subjective Information Pt seen resting in bed at time of RD visit. Pt wanted to have lunch but was having a hard time getting his tray, RD helped w/ adjusting of bed and repositioning pt. Pt reported of good appetite, and stated that he likes the food being served to him. Pt is for discharged to SNF. Per EMR, abd is soft and non-distended w/ active bowel sounds. I/O: 1650/1000 +650ml, IV total intake: 1150ml per 12 hrs. PO intake: 83% average of 3 meals 07/19/17. Pt is not yet appropriate for nutrition education. Current Diet Order/Nutrition Support Soft Low Fiber Ross diet x 2days Patient/Significant Other Able To Verbalize Education Provided Not Indicated Pertinent Medications miralax, methotrexate Na, k-dur, zofran, lactulose, vancomycin HCl/NaCl, D5% NS IV at 80ml/hr (326 kcal/day) Pertinent Labs Na 136 WNL (improved), K 4 WNL (improved), BUN 8 WNL (improved), H/H 11 L/ 32.7 L, RBC 3.48 L, WBC 3.8 L, Calcium 8.1 L, Alb 2.7 L Height (Feet) 6 feet Height (Inches) 1.00 inches Weight (Pounds) 180 pounds Weight (Calculated Kilograms) 81.787959 kilograms Patient Weight 81.647 kg Body Mass Index 23.75 kg/m2 %IBW [address] [place]/Adjusted Body Weight 184 lbs, 84 kg Recent Weight Change Yes - 15 lb wt loss - 7.7% severe wt change Weight Status Appropriate Gastrointestinal Symptoms Nausea Last BM Jul 15, 2017 Difficulty With: Chewing Food Allergies dislikes: egg Usual Diet At Home soft diet Skin Integrity Comment: Alfonso scale: 17, per nursingf notes: sacrum: wound Current % PO Good 83% PO intake Estimated Energy Expenditure (kcals/day) 2956-2861 kcal/day (BEE x 1-1.2 CBW for wt maintenance) Estimated Protein Required (g/day) 82 gm/day (1gm/kg CBW for Geriatric maintenance) Estimated Fluid Required (l/day) 2.4L/day (30ml/kg CBW for Geriatric maintenance) Problem/Etiology/Signs/Symptoms Unintentional wt loss related to poor nutritional intake as evidenced by 15 lb wt loss in 3 months, 7.7 % severe wt change. *ongoing Expected Outcomes/Goals Monitor pt appetite and PO intake w/ goal of pt meeting at least 80% of estimated nutritional needs, labs trending WNL, normal GI function, skin integrity/wt maintenance. Dietitian Recommendations *Recommend continuing Soft Low Fiber Ross diet per MD notes. Follow Up High Risk: F/U in 2-3days
--- NOTE | 2017-07-20 18:42 | NUR ---
PT TRANSFERRED Report given BY ARJUN JOVEL TO NADYA JOVEL at [facility]. Transfer packet with Transfer Orders and Medication Reconciliation form given to EMT with report. Exitcare provided. [facility] ID band removed, replaced with ID band with pt's name and . All belongings sent with patient. Patient left floor via gurney escorted by EMT in no distress.
== END 2017-07-20 18:38 | DRG 871 ==
LOC: SED 18:10 → SMU 19:34
PROVIDERS: ADMIT General Practice; ATTEND General Practice
DX: A41.01 Sepsis due to Methicillin susceptible Staphylococcus aureus (principal); N17.0 Acute kidney failure with tubular necrosis; E43 Unspecified severe protein-calorie malnutrition; F03.90 Unspecified dementia, unspecified severity, without behavioral disturbance, psychotic disturbance, mood disturbance, and anxiety; N39.0 Urinary tract infection, site not specified; I48.91 Unspecified atrial fibrillation; J44.9 Chronic obstructive pulmonary disease, unspecified; E11.9 Type 2 diabetes mellitus without complications; B96.20 Unspecified Escherichia coli [E. coli] as the cause of diseases classified elsewhere; I10 Essential (primary) hypertension; E87.1 Hypo-osmolality and hyponatremia; B95.2 Enterococcus as the cause of diseases classified elsewhere; R26.81 Unsteadiness on feet; G89.29 Other chronic pain; K56.41 Fecal impaction; M06.9 Rheumatoid arthritis, unspecified; H54.42 Blindness, left eye, normal vision right eye; Z90.49 Acquired absence of other specified parts of digestive tract; Z88.0 Allergy status to penicillin; Z87.891 Personal history of nicotine dependence; Z86.73 Personal history of transient ischemic attack (TIA), and cerebral infarction without residual deficits; Z85.72 Personal history of non-Hodgkin lymphomas; Z87.440 Personal history of urinary (tract) infections; Z79.899 Other long term (current) drug therapy; Z79.52 Long term (current) use of systemic steroids; Z68.23 Body mass index [BMI] 23.0-23.9, adult; Z79.891 Long term (current) use of opiate analgesic
CPT/HCPCS: 36415; 71010; 74000-TC; 80048; 80053; 80202-TC; 81000-TC; 82962; 83605; 83690-TC; 83735-TC; 83880; 84484; 85025; 87040-TC; 87081; 87086; 87186-TC; 93005; 96374; 96375; 97110-GP; 97116-GP; 97530-GP; 99285; J0696; J1644; J1815; J1885; J2060; J2270; J2405; J3370; J3475; J7042; J7050; J7060; J8610; Q2037

== ENCOUNTER 2019-10-20 15:16 | Inpatient (IN) | payer OTHER ==
[~2019-10-20] VITALS: Ht 188 cm; Wt 85.3 kg
[2019-10-20 15:16] VITALS: BP_SYST 134
[~2019-10-20 15:16] MED LIST changes: +DEXL60CA4 PO; +DONE5TAB3 PO; +FENT1PAT10 TD; +FOLI-43 PO; +LABE100T5 PO; +METH2.5T PO; -OMEP20CA10 PO; +POTA20TA83 PO; -QUET200T5 PO; +QUET400T PO; +TAMS-11 PO; +ZOLP10TA2 PO
[2019-10-20 16:27] LABS: BASOPHILS # (AUTO) 0.1 K/uL (0.0-0.2); BASOPHILS % (AUTO) 0.8 % (0.0-2.0); EOSINOPHILS # (AUTO) 0.1 K/uL (0.0-0.4); EOSINOPHILS % (AUTO) 1.9 % (0.0-4.0); HEMATOCRIT 35.8 % (36-54); LYMPHOCYTES # (AUTO) 1.2 K/uL (1.0-5.5); LYMPHOCYTES % (AUTO) 18.2 % (20.5-51.5); MEAN CORPUSCULAR HEMOGLOBIN 33 pg (27-31); MEAN CORPUSCULAR HGB CONC 34 % (32-36); MEAN CORPUSCULAR VOLUME 99 fL (79.0-98.0); MONOCYTES # (AUTO) 0.2 K/uL (0.0-1.0); MONOCYTES % (AUTO) 3.1 % (1.7-9.3); NEUTROPHILS # (AUTO) 4.9 K/uL (1.8-7.7); PLATELET COUNT (AUTO) 207 K/uL (130-430); RED CELL DISTRIBUTION WIDTH 15.7 % (9.0-15.0); WHITE BLOOD COUNT (AUTO) 6.4 K/uL (4.8-10.8)
[2019-10-20 16:53] LABS: INR 1.2 (0.80-1.20); PROTHROMBIN TIME 11.8 SECS (9.5-12.5)
[2019-10-20 16:54] LABS: ANION GAP 4 (5-15); CALCIUM 7.9 mg/dL (8.4-11.0); CHLORIDE 96 mmol/L (98-107); CREATININE 0.95 mg/dL (0.55-1.30); GLUCOSE 108 mg/dL (70-99); POTASSIUM 4.7 mmol/L (3.5-5.1); SODIUM SERUM 130 mmol/L (136-145); UREA NITROGEN, BLOOD 16 mg/dL (8-21)
[2019-10-20 17:01] LABS: ALANINE AMINOTRANSFERASE 15 U/L (12-78); ALBUMIN 3.1 g/dL (3.4-4.8); ASPARTATE AMINOTRANSFERASE 15 U/L (10-37); TOTAL BILIRUBIN 0.4 mg/dL (0.0-1.0)
[2019-10-20 17:43] LABS: BILIRUBIN,URINE NEGATIVE (NEGATIVE); BLOOD, URINE TRACE (NEGATIVE); CLARITY/URINE CLEAR (CLEAR); COLOR,URINE YELLOW (YELLOW); GLUCOSE,URINE NEGATIVE (NEGATIVE); KETONES,URINE NEGATIVE (NEGATIVE); LEUKOCYTE ESTERASE ,URINE 1+ (NEGATIVE); NITRITE, URINE NEGATIVE (NEGATIVE); PROTEIN URINE NEGATIVE (NEGATIVE); UROBILINOGEN,URINE 0.2 (0.2-1.0)
[2019-10-20 18:07] LABS: BACTERIA,URINE RARE /HPF (None Seen); MUCUS,URINE None Seen /LPF (None Seen); WBC,URINE 20-50 /HPF (0-3)
[2019-10-20] MEDS ORDERED: LEVOFLOXACIN 500 MG/D5W 100 ML IV ONE (19:00)
[2019-10-20] MEDS ORDERED: NACL 0.9% 1,000 ML IV ONE (19:00)
[2019-10-20] MEDS ORDERED: CRAN450C PO (19:43)
[2019-10-20] MEDS ORDERED: TRAM100T34 PO (19:43)
[2019-10-20] MEDS ORDERED: DOCU250C14 PO (19:43)
[2019-10-20] MEDS ORDERED: SULI200T4 PO (19:43)
[2019-10-20] MEDS ORDERED: DULO60CA41 PO (19:43)
[2019-10-20] MEDS ORDERED: PRO40 PO (19:43)
[2019-10-20] MEDS ORDERED: LACT10SO6 PO (19:43)
[2019-10-20] MEDS ORDERED: FLEETMO RC (19:43)
[2019-10-20] MEDS ORDERED: TRAZ-219 PO (19:43)
[2019-10-20] MEDS ORDERED: FOLI-43 PO (19:43)
[2019-10-20] MEDS ORDERED: METH2.5T PO (19:43)
[2019-10-20] MEDS ORDERED: METO25TA3 PO (19:43)
[2019-10-20] MEDS ORDERED: QUET300T2 PO (19:43)
[2019-10-20] MEDS ORDERED: APIX5TAB4 PO (19:43)
[2019-10-20] MEDS ORDERED: PRED5TAB PO (19:43)
[2019-10-20] MEDS ORDERED: BISA5TAB10 PO (19:43)
[2019-10-20] MEDS ORDERED: FLU VACC TS2019(65UP)/MF59C/PF 45 MCG/0.5 ML SYRINGE I.M. PRN (20:30)
[2019-10-20] MEDS ORDERED: METOPROLOL SUCCINATE 25 MG TAB.SR.24H (TOPROL XL) PO SCH ×2 (21:30→22:30)
[2019-10-20] MEDS ORDERED: LevALBUTEROL HCL 1.25 MG/0.5 ML *CONC.* VIAL.NEB (XOPENEX CONC.) INH PRN (21:45)
[2019-10-20] MEDS ORDERED: GENTAMICIN SULFATE 160 MG in NS 100 ML IV SCH (22:00)
[2019-10-20] MEDS: D5NS 1,000 ML IV SCH (22:23)
[2019-10-20 22:38] VITALS: BP_SYST 136
[2019-10-20] MEDS: LevALBUTEROL HCL 1.25 MG/0.5 ML *CONC.* VIAL.NEB (XOPENEX CONC.) INH SCH (23:32)
[2019-10-20 23:51] VITALS: BP_SYST 155
[2019-10-21] MEDS ORDERED: NS IV ONE (02:48)
[2019-10-21] MEDS ORDERED: GENTAMICIN 80 MG/50 ML IV ONE (02:48)
[2019-10-21] MEDS: PANTOPRAZOLE SODIUM 40 MG TAB PO SCH (06:28)
[2019-10-21 06:38] LABS: ANION GAP 9 (5-15); CALCIUM 8.6 mg/dL (8.4-11.0); CHLORIDE 95 mmol/L (98-107); CREATININE 0.87 mg/dL (0.55-1.30); GLUCOSE 94 mg/dL (70-99); POTASSIUM 4.2 mmol/L (3.5-5.1); SODIUM SERUM 135 mmol/L (136-145); UREA NITROGEN, BLOOD 14 mg/dL (8-21)
[2019-10-21 06:43] LABS: BASOPHILS % (AUTO) 0.6 % (0.0-2.0); EOSINOPHILS # (AUTO) 0.2 K/uL (0.0-0.4); EOSINOPHILS % (AUTO) 2.2 % (0.0-4.0); HEMATOCRIT 38.3 % (36-54); HEMOGLOBIN 12.8 g/dL (14.0-18.0); LYMPHOCYTES # (AUTO) 1.4 K/uL (1.0-5.5); MEAN CORPUSCULAR HEMOGLOBIN 33 pg (27-31); MEAN CORPUSCULAR HGB CONC 33 % (32-36); MEAN CORPUSCULAR VOLUME 100 fL (79.0-98.0); MONOCYTES # (AUTO) 0.3 K/uL (0.0-1.0); MONOCYTES % (AUTO) 4.4 % (1.7-9.3); NEUTROPHILS # (AUTO) 5.7 K/uL (1.8-7.7); NEUTROPHILS % (AUTO) 74.8 % (40.0-70.0); PLATELET COUNT (AUTO) 246 K/uL (130-430); RED BLOOD CELL COUNT(AUTO) 3.85 MIL/uL (4.2-6.2); RED CELL DISTRIBUTION WIDTH 16.1 % (9.0-15.0); WHITE BLOOD COUNT (AUTO) 7.6 K/uL (4.8-10.8)
[2019-10-21] MEDS: LevALBUTEROL HCL 1.25 MG/0.5 ML *CONC.* VIAL.NEB (XOPENEX CONC.) INH SCH ×2 (07:31→23:39)
[2019-10-21 08:00] VITALS: BP_SYST 156
[2019-10-21] MEDS: DOCUSATE SODIUM 250 MG CAPSULE PO SCH ×2 (08:39→21:51)
[2019-10-21] MEDS: DULoxetine HCL 30 MG CAPSULE.DR (CYMBALTA) PO SCH ×2 (08:39→21:51)
[2019-10-21] MEDS: PREDNISONE 5 MG TABLET PO SCH (08:39)
[2019-10-21] MEDS: METOPROLOL SUCCINATE 25 MG TAB.SR.24H (TOPROL XL) PO SCH (08:40)
[2019-10-21] MEDS: BISACODYL 5 MG TABLET.DR (DULCOLAX) PO SCH (08:40)
[2019-10-21] MEDS: FOLIC ACID 1 MG TABLET PO SCH (08:40)
[2019-10-21] MEDS: MINERAL OIL 133 ML ENEMA RC SCH (09:00)
[2019-10-21] MEDS: D5NS 1,000 ML IV SCH (11:22)
[2019-10-21] MEDS ORDERED: GENTAMICIN SULFATE IV SCH (12:00)
[2019-10-21] MEDS ORDERED: NS IV SCH (12:00)
[2019-10-21 12:57] VITALS: BP_SYST 148
[2019-10-21] MEDS ORDERED: BISACODYL 10 MG/SUPPOSITORY RC PRN (17:15)
[2019-10-21 18:22] VITALS: BP_SYST 157
[2019-10-21 19:00] VITALS: BP_SYST 141
[2019-10-21 20:00] VITALS: BP_SYST 141
[2019-10-21] MEDS: traZODone HCL 50 MG TABLET (DESYREL) PO SCH (21:51)
[2019-10-21] MEDS: QUEtiapine FUMARATE 100 MG TABLET PO SCH (21:52)
[2019-10-22] VITALS: BP_SYST 135
[2019-10-22] MEDS: D5NS 1,000 ML IV SCH ×3 (00:40→22:39)
[2019-10-22] MEDS: PANTOPRAZOLE SODIUM 40 MG TAB PO SCH (05:38)
[2019-10-22] MEDS: LevALBUTEROL HCL 1.25 MG/0.5 ML *CONC.* VIAL.NEB (XOPENEX CONC.) INH SCH ×3 (07:00→23:21)
[2019-10-22 07:15] LABS: ALANINE AMINOTRANSFERASE 19 U/L (12-78); ALBUMIN 2.8 g/dL (3.4-4.8); ANION GAP 11 (5-15); CALCIUM 8.4 mg/dL (8.4-11.0); CHLORIDE 96 mmol/L (98-107); CREATININE 0.76 mg/dL (0.55-1.30); GLUCOSE 91 mg/dL (70-99); POTASSIUM 4.1 mmol/L (3.5-5.1); SODIUM SERUM 133 mmol/L (136-145); TOTAL BILIRUBIN 0.7 mg/dL (0.0-1.0); UREA NITROGEN, BLOOD 10 mg/dL (8-21)
[2019-10-22 07:44] LABS: ASPARTATE AMINOTRANSFERASE 25 U/L (10-37)
[2019-10-22 08:00] VITALS: BP_SYST 133
[2019-10-22] MEDS: MINERAL OIL 133 ML ENEMA RC SCH ×2 (08:45→10:37)
[2019-10-22] MEDS: BISACODYL 5 MG TABLET.DR (DULCOLAX) PO SCH (08:52)
[2019-10-22] MEDS: FOLIC ACID 1 MG TABLET PO SCH (08:52)
[2019-10-22] MEDS: PREDNISONE 5 MG TABLET PO SCH (08:52)
[2019-10-22] MEDS: DULoxetine HCL 30 MG CAPSULE.DR (CYMBALTA) PO SCH ×2 (08:52→22:32)
[2019-10-22] MEDS: DOCUSATE SODIUM 250 MG CAPSULE PO SCH ×2 (08:52→22:31)
[2019-10-22] MEDS: METOPROLOL SUCCINATE 25 MG TAB.SR.24H (TOPROL XL) PO SCH (08:53)
[2019-10-22] MEDS ORDERED: SODIUM PHOSPHATE,MONO-DIBASIC 133 ML ENEMA RC PRN (11:30)
[2019-10-22] MEDS ORDERED: LACTULOSE 20 GM/30 ML UDC PO ONE (11:45)
[2019-10-22] MEDS ORDERED: APIXABAN 2.5 MG TABLET PO ONE (11:45)
[2019-10-22] MEDS ORDERED: DICLOFENAC SODIUM 25 MG TABLET.DR PO ONE (11:45)
[2019-10-22 12:46] VITALS: BP_SYST 133
[2019-10-22] MEDS ORDERED: MUPIROCIN 2% TOPICAL OINTMENT 22 GM NS ONE (16:00)
[2019-10-22 17:03] VITALS: BP_SYST 148
[2019-10-22 20:00] VITALS: BP_SYST 122
[2019-10-22] MEDS: MUPIROCIN 2% TOPICAL OINTMENT 22 GM NS SCH (21:00)
[2019-10-22] MEDS: traZODone HCL 50 MG TABLET (DESYREL) PO SCH (22:32)
[2019-10-22] MEDS: QUEtiapine FUMARATE 100 MG TABLET PO SCH (22:33)
[2019-10-22] MEDS: DICLOFENAC SODIUM 25 MG TABLET.DR PO SCH (22:34)
[2019-10-22] MEDS: APIXABAN 2.5 MG TABLET PO SCH (22:35)
[2019-10-22] MEDS: GENTAMICIN SULFATE IV SCH (22:39)
[2019-10-22] MEDS: NS IV SCH (22:39)
[2019-10-23] VITALS (7 sets, daily range): BP systolic 131–163
[2019-10-23] MEDS: PANTOPRAZOLE SODIUM 40 MG TAB PO SCH (06:43)
[2019-10-23] MEDS: LevALBUTEROL HCL 1.25 MG/0.5 ML *CONC.* VIAL.NEB (XOPENEX CONC.) INH SCH ×3 (07:17→23:17)
[2019-10-23 07:34] LABS: BASOPHILS # (AUTO) 0.1 K/uL (0.0-0.2); EOSINOPHILS # (AUTO) 0.2 K/uL (0.0-0.4); EOSINOPHILS % (AUTO) 2.9 % (0.0-4.0); HEMATOCRIT 34.7 % (36-54); HEMOGLOBIN 11.8 g/dL (14.0-18.0); LYMPHOCYTES # (AUTO) 1.3 K/uL (1.0-5.5); LYMPHOCYTES % (AUTO) 23.2 % (20.5-51.5); MEAN CORPUSCULAR HEMOGLOBIN 34 pg (27-31); MEAN CORPUSCULAR HGB CONC 34 % (32-36); MEAN CORPUSCULAR VOLUME 100 fL (79.0-98.0); MONOCYTES # (AUTO) 0.5 K/uL (0.0-1.0); MONOCYTES % (AUTO) 9.1 % (1.7-9.3); NEUTROPHILS # (AUTO) 3.7 K/uL (1.8-7.7); NEUTROPHILS % (AUTO) 63.8 % (40.0-70.0); PLATELET COUNT (AUTO) 212 K/uL (130-430); RED BLOOD CELL COUNT(AUTO) 3.48 MIL/uL (4.2-6.2); RED CELL DISTRIBUTION WIDTH 15.9 % (9.0-15.0); WHITE BLOOD COUNT (AUTO) 5.8 K/uL (4.8-10.8)
[2019-10-23] MEDS: MINERAL OIL 133 ML ENEMA RC SCH (08:00)
[2019-10-23 08:08] LABS: ANION GAP 3 (5-15); CALCIUM 8.1 mg/dL (8.4-11.0); CHLORIDE 98 mmol/L (98-107); CREATININE 0.91 mg/dL (0.55-1.30); GLUCOSE 99 mg/dL (70-99); POTASSIUM 3.9 mmol/L (3.5-5.1); SODIUM SERUM 128 mmol/L (136-145); UREA NITROGEN, BLOOD 16 mg/dL (8-21)
[2019-10-23] MEDS: LACTULOSE 20 GM/30 ML UDC PO SCH (08:43)
[2019-10-23] MEDS: MUPIROCIN 2% TOPICAL OINTMENT 22 GM NS SCH ×2 (08:44→21:38)
[2019-10-23] MEDS: FOLIC ACID 1 MG TABLET PO SCH (08:44)
[2019-10-23] MEDS: DULoxetine HCL 30 MG CAPSULE.DR (CYMBALTA) PO SCH ×2 (08:44→21:38)
[2019-10-23] MEDS: BISACODYL 5 MG TABLET.DR (DULCOLAX) PO SCH (08:44)
[2019-10-23] MEDS: DICLOFENAC SODIUM 25 MG TABLET.DR PO SCH ×2 (08:44→21:40)
[2019-10-23] MEDS: METOPROLOL SUCCINATE 25 MG TAB.SR.24H (TOPROL XL) PO SCH (08:45)
[2019-10-23] MEDS: DOCUSATE SODIUM 250 MG CAPSULE PO SCH ×2 (08:45→21:38)
[2019-10-23] MEDS: PREDNISONE 5 MG TABLET PO SCH (08:45)
[2019-10-23] MEDS: APIXABAN 2.5 MG TABLET PO SCH ×2 (08:46→21:42)
[2019-10-23] MEDS: traMADol HCL HCL 50 MG TABLET (ULTRAM) PO PRN (14:01)
[2019-10-23] MEDS: traZODone HCL 50 MG TABLET (DESYREL) PO SCH (21:39)
[2019-10-23] MEDS: QUEtiapine FUMARATE 100 MG TABLET PO SCH (21:40)
[2019-10-24 00:37] VITALS: BP_SYST 143
[2019-10-24] MEDS: PANTOPRAZOLE SODIUM 40 MG TAB PO SCH (05:31)
[2019-10-24 06:10] LABS: ANION GAP 8 (5-15); CALCIUM 8.1 mg/dL (8.4-11.0); CHLORIDE 94 mmol/L (98-107); CREATININE 0.89 mg/dL (0.55-1.30); GLUCOSE 90 mg/dL (70-99); POTASSIUM 3.8 mmol/L (3.5-5.1); SODIUM SERUM 131 mmol/L (136-145); UREA NITROGEN, BLOOD 12 mg/dL (8-21)
[2019-10-24 06:35] LABS: BASOPHILS % (AUTO) 0.8 % (0.0-2.0); EOSINOPHILS # (AUTO) 0.2 K/uL (0.0-0.4); EOSINOPHILS % (AUTO) 3.3 % (0.0-4.0); HEMATOCRIT 35.8 % (36-54); LYMPHOCYTES # (AUTO) 1.2 K/uL (1.0-5.5); LYMPHOCYTES % (AUTO) 24.4 % (20.5-51.5); MEAN CORPUSCULAR HEMOGLOBIN 33 pg (27-31); MEAN CORPUSCULAR HGB CONC 33 % (32-36); MEAN CORPUSCULAR VOLUME 100 fL (79.0-98.0); MONOCYTES # (AUTO) 0.4 K/uL (0.0-1.0); NEUTROPHILS % (AUTO) 62.5 % (40.0-70.0); PLATELET COUNT (AUTO) 240 K/uL (130-430); RED CELL DISTRIBUTION WIDTH 15.6 % (9.0-15.0); WHITE BLOOD COUNT (AUTO) 4.8 K/uL (4.8-10.8)
[2019-10-24] MEDS: LevALBUTEROL HCL 1.25 MG/0.5 ML *CONC.* VIAL.NEB (XOPENEX CONC.) INH SCH ×2 (07:36→15:24)
[2019-10-24 08:00] VITALS: BP_SYST 126
[2019-10-24] MEDS: APIXABAN 2.5 MG TABLET PO SCH (09:12)
[2019-10-24] MEDS: LACTULOSE 20 GM/30 ML UDC PO SCH (09:12)
[2019-10-24] MEDS: DULoxetine HCL 30 MG CAPSULE.DR (CYMBALTA) PO SCH (09:12)
[2019-10-24] MEDS: MUPIROCIN 2% TOPICAL OINTMENT 22 GM NS SCH (09:12)
[2019-10-24] MEDS: FOLIC ACID 1 MG TABLET PO SCH (09:13)
[2019-10-24] MEDS: DOCUSATE SODIUM 250 MG CAPSULE PO SCH (09:13)
[2019-10-24] MEDS: METOPROLOL SUCCINATE 25 MG TAB.SR.24H (TOPROL XL) PO SCH (09:13)
[2019-10-24] MEDS: PREDNISONE 5 MG TABLET PO SCH (09:13)
[2019-10-24] MEDS: DICLOFENAC SODIUM 25 MG TABLET.DR PO SCH (09:14)
[2019-10-24] MEDS: MINERAL OIL 133 ML ENEMA RC SCH (09:14)
[2019-10-24] MEDS: BISACODYL 5 MG TABLET.DR (DULCOLAX) PO SCH (09:14)
[2019-10-24] MEDS: GENTAMICIN SULFATE IV SCH (10:21)
[2019-10-24] MEDS: NS IV SCH (10:21)
[2019-10-24 12:48] VITALS: BP_SYST 134
[2019-10-24] MEDS: traMADol HCL HCL 50 MG TABLET (ULTRAM) PO PRN (13:25)
[2019-10-24 16:21] VITALS: BP_SYST 144
[2019-10-24] MEDS ORDERED: MILK OF MAGNESIA 30 ML UDC PO ONE (16:30)
[2019-10-24] MEDS ORDERED: MILK OF MAGNESIA 30 ML UDC PO PRN (16:30)
[2019-10-24] MEDS ORDERED: cloNIDine HCL 0.1 MG TABLET PO PRN (19:00)
[2019-10-24 20:01] VITALS: BP_SYST 143
[2019-10-24] MEDS ORDERED: METOPROLOL SUCCINATE 50 MG TAB.SR.24H (TOPROL XL) PO SCH (21:00)
[2019-10-24] MEDS ORDERED: SENNOSIDES 8.6 MG TABLET PO SCH (21:00)
== END 2019-10-24 20:51 | DRG 690 ==
LOC: EDBD → SED 15:16 → MERGE 18:50 → SMU 18:50
PROVIDERS: ADMIT Family Medicine; ATTEND Family Medicine
DX: N39.0 Urinary tract infection, site not specified (principal); E87.1 Hypo-osmolality and hyponatremia; M06.9 Rheumatoid arthritis, unspecified; I10 Essential (primary) hypertension; J44.9 Chronic obstructive pulmonary disease, unspecified; F32.9 Major depressive disorder, single episode, unspecified; I48.91 Unspecified atrial fibrillation; K21.9 Gastro-esophageal reflux disease without esophagitis; N40.0 Benign prostatic hyperplasia without lower urinary tract symptoms; G47.00 Insomnia, unspecified; H54.62 Unqualified visual loss, left eye, normal vision right eye; Z88.0 Allergy status to penicillin; Z87.891 Personal history of nicotine dependence; Z88.8 Allergy status to other drugs, medicaments and biological substances
CPT/HCPCS: 36415; 71045; 80048; 80053; 80170-TC; 81000-TC; 83605; 84484; 85025; 85610-TC; 85730-TC; 87040-TC; 87081; 87086; 93005; 94640; 94760; 96361; 96374; 97110-GP; 97116-GP; 97530-GP; 99285; J1580; J1956; J7042; J7512; J7612